=== PATIENT | female | born 2000 | race Caucasian/White ===

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

== ENCOUNTER 2019-05-21 08:00 | Emergency (ER) | payer OTHER ==
--- NOTE | 2019-05-21 08:11 | ED ---
Neurological HPI - HPI Summary HPI Summary: This patient is a 18 y/o female presenting to [facility] c/o seizure today. Patient reports she was sleeping and when she woke up her parents were around her. Patient's parents described patient had a tonic clonic seizure. After the seizure parents state patient was in a postictal state. Patient does not remember the seizure. Currently patient is alert and oriented. Patient's brother has hx of seizure and therefore parents know what a seizure looks like. She currently reports a headache and nausea. She denies any recent traveling. Denies sick contacts. PMHx: GERD. Denies any hx of seizures. Denies PSHx. Patient reports marijuana use however denies alcohol and tobacco use. Home Medications Medication Instructions Recorded Confirmed Type NK [No Home Medications Reported] 05/21/19 05/21/19 History - History of Current Complaint Chief Complaint: EDGeneral Stated Complaint: SEIZURE Hx Obtained From: Patient Onset/Duration: Sudden Onset Timing: Sudden Onset Onset Severity: Moderate Seizure Severity: Moderate Pain Intensity: 4 - headache Pain Scale Used: 0-10 Numeric Character: Other: - seizure Seizure Character: Total-Clonic Aggravating: Nothing Alleviating: Nothing Associated Signs and Symptoms: Positive: Headache, Seizure, Nausea/Vomiting - nausea. Negative: Fever, Chest Pain, Shortness of Breath - Allergy/Home Medications Allergies/Adverse Reactions: Allergies Allergy/AdvReac Type Severity Reaction Status Date / Time No Known Allergies Allergy Verified 05/21/19 08:05 Home Medications: Home Medications NK [No Home Medications Reported] 05/21/19 [History Confirmed 05/21/19] PMH/Surg Hx/FS Hx/Imm Hx Cardiovascular History: Denies: Other Cardiovascular Problems/Disorders Respiratory History: Denies: Other Respiratory Problems/Disorders GI History: Reports: Hx Gastroesophageal Reflux Disease Denies: Other GI Disorders History: Denies: Other Problems/Disorders Musculoskeletal History: Denies: Other Musculoskeletal History Sensory History: Denies: Hx Contacts or Glasses, Hx Hearing Aid Opthamlomology History: Denies: Hx Contacts or Glasses Neurological History: Denies: Hx Seizures, Other Neuro Impairments/Disorders Psychiatric History: Reports: Hx Anxiety - no meds - Surgical History Surgical History: None Hx Anesthesia Reactions: No Infectious Disease History: No Infectious Disease History: Denies: Traveled Outside the [place] in Last 30 Days - Family History Known Family History: Positive: Respiratory Disease - mother with asthma, Seizure Disorder - brother Family History: father with GERD - Social History Alcohol Use: None Substance Use Type: Reports: Marijuana Smoking Status (MU): Never Smoked Tobacco Review of Systems Negative: Fever Positive: Nausea Neurological/Mental Status: Other - POSITIVE: seizure Positive: Headache All Other Systems Reviewed And Are Negative: Yes Physical Exam - Summary Physical Exam Summary: VITAL SIGNS: Reviewed. GENERAL: Patient is a well-developed and nourished female who is lying comfortable in the stretcher. Patient is not in any acute respiratory distress. HEAD AND FACE: No signs of trauma. No ecchymosis, hematomas or skull depressions. No sinus tenderness. EYES: PERRLA, EOMI x 2, No injected conjunctiva, no nystagmus. EARS: Hearing grossly intact. Ear canals and tympanic membranes are within normal limits. MOUTH: Oropharynx within normal limits. NECK: Supple, trachea is midline, no adenopathy, no JVD, no carotid bruit, no c- spine tenderness, neck with full ROM. CHEST: Symmetric, no tenderness at palpation LUNGS: Clear to auscultation bilaterally. No wheezing or crackles. CVS: Regular rate and rhythm, S1 and S2 present, no murmurs or gallops appreciated. ABDOMEN: Soft, non-tender. No signs of distention. No rebound no guarding, and no masses palpated. Bowel sounds are normal. EXTREMITIES: FROM in all major joints, no edema, no cyanosis or clubbing. NEURO: Alert and oriented x 3. No acute neurological deficits. Speech is normal and follows commands. SKIN: Dry and warm GCS: 15 Triage Information Reviewed: Yes Vital Signs On Initial Exam: Initial Vitals Temp Pulse Resp BP Pulse Ox 98.4 F 93 16 129/92 9 05/21/19 08:01 05/21/19 08:01 05/21/19 08:01 05/21/19 08:01 05/21/19 08:01 Vital Signs Reviewed: Yes Procedures - Sedation Patient Received Moderate/Deep Sedation with Procedure: No Diagnostics - Vital Signs Vital Signs Temp Pulse Resp BP Pulse Ox 05/21/19 08:01 98.4 F 93 16 129/92 9 - Laboratory Result Diagrams: 05/21/19 08:25 05/21/19 08:25 Lab Statement: Any lab studies that have been ordered have been reviewed, and results considered in the medical decision making process. - Radiology Chest XR Radiology Interpretation Completed By: Radiologist Summary of Radiographic Findings: IMPRESSION: No acute cardiopulmonary process by radiograph. Dr. Sharp has reviewed this report. - EKG 08:31 Cardiac Rate: NL - at 68 bpm EKG Rhythm: Sinus Rhythm Summary of EKG Findings: E[place] at 0831 shows sinus rhythm at a rate of [address] elevations. This EKG was reviewed and interpreted by ED physician. - Additional Comments Diagnostic Additional Comments: Electroencephalography Clinical Impression: This is an abnormal EEG due to the presence of: 1. Rare spike and slow wave epileptiform discharges seen diffusely, but also over the right frontal region. This indicates an increased epileptogenic potential emanating from these regions. This can also be seen with underlying idiopathic generalized epilepsy. 2. Independent but occasionally bisynchronous slowing over the left frontrotemporal and right frontotemporal regions. This indicates a possible focal neuronal dysfunction in those regions. 3. Diffuse intermittent background slowing which suggests mild diffuse encephalopathy that can be seen in postictal state. Brain MRI, as read by radiologist IMPRESSION: No intracranial mass or hemorrhage is noted. No other abnormality is identified. Dr. Sharp has reviewed these reports. Re-Evaluation - Re-Evaluation First Eval Re-Evaluation Time: 12:20 Comment: Dr. Velarde, neurologist, at bedside. Course/Dx - Course Assessment/Plan: This patient is a 18 y/o female presenting to [facility] c/o seizure today. Patient reports she was sleeping and when she woke up her parents were around her. Patient's parents described patient had a tonic clonic seizure. After the seizure parents state patient was in a postictal state. Currently patient is alert and oriented. Patient's brother has hx of seizure and therefore parents know what a seizure looks like. She currently reports a headache and nausea. She denies any recent traveling. Denies sick contacts. PMHx: GERD. Denies any hx of seizures. Denies PSHx. Patient reports marijuana use however denies alcohol and tobacco use. In the ED course the patient was placed in a sales trainer, IV access was obtained, IV fluids were started. Past medical records reviewed. Blood test w/o a significant abnormality except for hemoglobin 11.4, glucose 114, magnesium 1.8, urinalysis is contaminated. I discussed my physical exam and findings with Dr. eVlarde from neurology who came and examined the patient. He requested an EEG and after the EEG he requested to do an MRI of the brain. Dr. Velarde recommends for the patient to the discharged home after the MRI was done without waiting for the MRI results. Therefore the patient will be discharged home and follow-up with neurology. - Diagnoses Provider Diagnoses: Seizures - Physician Notifications Discussed Care Of Patient With: Minal Velarde Time Discussed With Above Provider: 10:54 Instructed by Provider To: Other - Discussed Dr. Velarde, neurologist, who will come see her in the ED and recommends to order EEG. Discharge ED - Sign-Out/Discharge Documenting (check all that apply): Patient Departure - Discharge home - Discharge Plan Condition: Stable Disposition: HOME Patient Education Materials: New-Onset Seizure in Adults (ED) Referrals: Minal Velarde MD [Medical Doctor] - Vandana Ruby MD [Primary Care Provider] - Additional Instructions: FOLLOW UP WITH DR. VELARDE, NEUROLOGIST. RETURN TO THE EMERGENCY DEPARTMENT FOR ANY WORSENING OR NEW SYMPTOMS. - Billing Disposition and Condition Condition: STABLE Disposition: Home - Attestation Statements Document Initiated by Jacquesibe: Yes Documenting Scribe: Freida Terry Provider For Whom Chantelle is Documenting (Include Credential): Ajit Sharp MD Scribe Attestation: Freida Helms, scribed for Ajit Sharp MD on 05/21/19 at 1739. Scribe Documentation Reviewed: Yes Provider Attestation: The documentation as recorded by the Freida monge accurately reflects the service I personally performed and the decisions made by me, Ajit Sharp MD Status of Scribe Document: Viewed
[2019-05-21 08:45] LABS: INR 1.16 (0.82-1.09)
[2019-05-21 08:47] LABS: ABS Lymphocytes 0.6 10^3/ul (1.0-4.8); ABS Monocytes 0.3 10^3/ul (0-0.8); ABS Neutrophils 5.2 10^3/ul (1.5-7.7); Eosinophil % 0.1 %; Hematocrit 35 % (35-47); Hemoglobin 11.4 g/dL (12.0-16.0); Lymphocyte % 10.1 %; Mean Corpuscular HGB Conc 32 g/dL (31-36); Mean Corpuscular Hemoglobin 23 pg (27-31); Mean Corpuscular Volume 72 fL (80-97); Platelet Count 227 10^3/uL (150-450); Red Blood Count 4.89 10^6 /uL (3.70-4.87); Red Cell Distribution Width 17 % (10-15); White Blood Count 6.2 10^3/uL (3.5-10.8)
[2019-05-21 08:55] LABS: ALT 11 U/L (7-52); AST 14 U/L (13-39); Albumin 4.7 g/dL (3.2-5.2); Albumin/Globulin Ratio 1.6 (1-3); Alkaline Phosphatase 52 U/L (34-104); Anion Gap 7 mmol/L (2-11); BUN/Creatinine Ratio 14.9 (8-20); Blood Urea Nitrogen 11 mg/dL (6-24); CO2 Carbon Dioxide 25 mmol/L (22-32); Calcium 9.6 mg/dL (8.6-10.3); Chloride 105 mmol/L (101-111); Creatine Kinase 107 U/L (10-223); EGFR African American 122.3 (>60); EGFR Non-African American 101.1 (>60); Glucose 114 mg/dL (70-100); Magnesium 1.8 mg/dL (1.9-2.7); Potassium 3.7 mmol/L (3.5-5.0); Sodium 137 mmol/L (135-145); Total Protein 7.7 g/dL (6.4-8.9)
[2019-05-21 09:08] LABS: Urine Appearance Cloudy; Urine Bilirubin Negative (Negative); Urine Blood Negative (Negative); Urine Color Yellow; Urine Glucose Negative (Negative); Urine Ketones Trace (Negative); Urine Nitrite Negative (Negative); Urine Protein 1+(30 mg/dL) (Negative); Urine Urobilinogen Negative (Negative)
[2019-05-21 09:17] LABS: Urine Bacteria Absent (Absent); Urine Red Blood Cell Trace(0-2/hpf) (Absent); Urine Squamous Epithelial Cell Present (Absent); Urine White Blood Cell 1+(6-10/hpf) (Absent)
[2019-05-21 09:26] LABS: Alcohol < 10 mg/dL (<10)
[2019-05-21 09:26] LABS: Urine Benzodiazepine Screen None Detected (None Detect); Urine Opiates Screen None Detected (None Detect)
[2019-05-21 09:31] LABS: Microcytosis 2+
[2019-05-21 12:50] LABS: Phosphorus 2.1 mg/dL (2.5-5.0)
--- NOTE | 2019-05-21 13:43 | EEG ---
ELECTROENCEPHALOGRAPHY: DATE OF STUDY: The study was ordered on 05/21/19, it was read on 05/21/19. ORDERED BY: Ajit Sharp MD. CLINICAL PROBLEM: Ms. Apurva Thapa is a 18-year-old female who had a 2-minute seizure in her sleep. MEDICATION: None. REPORT: The most prominent feature of this recording were rare epileptiform discharges with a morphology of spike and high amplitude broad shaped delta waves seen diffusely but predominantly in the right frontal region lasting for 1 -1.5 seconds. The frequency was approximately 2-1/2 - 3 seconds. Also, there were occasional, high amplitude, polymorphic, diffuse, intermittent, 2-4 Hz delta slowing seen independently in the left frontotemporal and right frontotemporal regions bilaterally. There were occasional diffuse polymorphic high amplitude slowing with a frequency of 2-4 Hz delta and theta range lasting for 1 second seen throughout the recording. Otherwise, the waking background showed appropriate organization with clearly defined anterior-posterior voltage and frequency gradients. There was a discernible posterior dominant rhythm of approximately 10 Hz that was seen symmetrically. Attenuation of the occipital rhythm accompanied drowsiness. Hyperventilation and photic stimulation were not performed. Single electrode EKG showed a normal sinus rhythm with a rate of 90 beats per minute. Throughout the recording there were no electrographic seizures. CLINICAL IMPRESSION: This is an abnormal EEG due to the presence of: 1. Rare spike and slow wave epileptiform discharges seen diffusely, but predominately over the right frontal region. This indicates an increased epileptogenic potential emanating from these regions. This can also be seen with underlying idiopathic generalized epilepsy or frontal lobe seizures. 2. Independent but occasionally bisynchronous slowing over bilateral frontotemporal regions. This indicates a possible focal neuronal dysfunction in those regions. 3. Diffuse intermittent background slowing which suggests mild diffuse encephalopathy that can be seen in postictal state. [id number]/[facility] #: [id number] [facility]
--- NOTE | 2019-05-21 14:59 | CONS ---
NEUROLOGY CONSULTATION NOTE: DATE OF CONSULT: 05/21/19 CONSULTING PROVIDER: Dr. Sharp. REASON FOR CONSULT: Seizure. CHIEF COMPLAINT: I had a seizure. HISTORY OF PRESENT ILLNESS: Ms. Apurva Thapa is a 18-year-old right-handed female, who is a college student, who had an episode of seizure-like activity noted by her parents this morning. The patient had to put down her dog yesterday after having the dog for 8 years. She is extremely stressed out and emotional. She could not sleep well all night. Overnight, she walked into her mother's bedroom and slept on her parents bed. This morning, she woke up and noticed both her parents were at bedside. I personally called and Mrs. Thapa and obtained further history. The patient was apparently sleeping in bed when suddenly she started moaning. Her hands pronated. Her body stiffened. She began shaking with tonic-clonic activity for 2 minutes. Her eyes were open. She did not have any bowel or bladder incontinence. The patient was confused for 19 minutes. EMS was contacted. En route to the hospital by her parents, the patient was able to communicate and recognize the trip to the ED. The patient has never had any seizures before. She has no history of meningitis or encephalitis. She was born a full term with normal vaginal delivery. 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 She denied any head injury. She does have a family history of epilepsy. Her brother suffers from seizures, but these were possibly induced. The patient is back to baseline today. She did not have a CT of the head done. She had her labs that showed no evidence of any infections or electrolyte imbalance. Her magnesium level was slightly low at 1.8. She has no evidence of urinary tract infection. She did have a positive cannabinoids in the urine tox. The patient had an EEG done in the ED that showed diffuse slowing with independent right and left frontotemporal slowing and lastly rare frontal spike and slow wave epileptiform activity at a frequency of 2.5 to 3 Hz lasting 1 to less than 2 seconds. PAST MEDICAL HISTORY: 1. GERD. 2. Depression. PAST SURGICAL HISTORY: Endoscopy. MEDICATIONS: None. ALLERGIES: No known drug allergies. FAMILY HISTORY: Brother with seizures. SOCIAL HISTORY: The patient goes to college in [place]. She is a Senior. 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 She denied any tobacco use. She smokes marijuana occasionally. She denied any alcohol use. REVIEW OF SYSTEMS: A 14-point review of systems was obtained and otherwise negative except for as mentioned in the HPI. PHYSICAL EXAM: Vitals: Temperature of 97.8, pulse of 96, respiratory rate of 22, oxygen saturation 99, blood pressure of 122/70. General: Well-nourished, well- developed young female, in no acute distress. Head: Atraumatic and normocephalic without any obvious abnormality. Neck is supple and symmetrical with no carotid bruit. Eyes: Conjunctivae/corneas are clear. Tongue has mild laceration on the lateral surface of the left tongue. Cardiovascular: Regular rate and rhythm with normal S1, S2. Respiratory: Clear to auscultation bilaterally with no wheezing or rhonchi. Extremities: Normal range of motion with no cyanosis. Skin: No skin lesions, no laceration. Psych: Affect is broad. Normal mood. Neurological Examination: Mental Status: Awake, alert and oriented to person, place, time and general circumstance. Speech and language including repetition, comprehension and fluency were assessed and found to be normal. Cranial Nerves: Pupil equal, round and reactive to light, extraocular muscles are intact. There is normal sensation in the face bilaterally, normal facial symmetry, tongue is symmetric and midline with no atrophy or fasciculation. Motor Examination: 5/5 strength in the upper and lower extremities bilaterally. Sensation is intact to light touch. Reflexes 2 + in the upper and lower extremities with downgoing plantar responses bilaterally. Coordination normal finger to nose and heel to jaime testing. Gait : Normal stance. She was walking around in the ED going to the bathroom independently. ASSESSMENT/RECOMMENDATIONS: Ms. Apurva Thapa is a 18-year-old female who is fairly healthy, who had a seizure-like activity witnessed by her parents today. The patient is back to her normal self. She has no focal neurological deficits on examination. Her EEG was positive for rare epileptiform discharges emanating from the frontal regions bilaterally predominantly in the right frontal region with diffuse polymorphic slowing and focal intermittent right frontotemporal and left frontotemporal slowing. Overall, I do suspect the patient had a first time seizure, most likely a nocturnal seizure or seizures related to idiopathic epilepsy that was provoked by sleep deprivation and stress. She has no risk factors other than having a brother with epilepsy that was thought to be provoked. I had a long discussion multiple times with and Mrs. Thapa as well as Apurva today. I informed them that epileptiform abnormalities can be seen in approximately 25% of the patients following a seizure. This finding substantially increases the likelihood that she will experience a second seizure over the next 2 years. Furthermore, approximately one third of patients will have a recurrent seizure within 5 years if there are abnormalities on EEG or if the first time seizure occurred during sleep, which is the case here. However, she still has a chance that she will never have a second seizure especially since this event took place in the setting of sleep deprivation, which she did have overnight given that she was having grief over her dog that she had to put down yesterday. I am concerned that she is going to have another seizure, therefore, I did inform the family that we have 2 options. First option is to closely monitor her to see if she has another event. If she does have a second seizure, then she will need to be placed on long-term anti- seizure medication. I would recommend levetiracetam with a loading dose of 1000 mg IV x1 and to continue 500 mg twice daily. The second option is to start her on seizure medication today after this first event. The family and the patient had agreed to hold off initiating anti-seizure medication until she has a second seizure. We agreed to obtain an MRI of the brain with and without contrast to evaluate for a structural abnormality such as mesial temporal sclerosis or cortical dysplasia. If abnormal, I would be more inclined to start her on anti-seizure medication today. I educated the patient that she should not be driving, operating any other heavy machinery, climbing ladders, roof tops or swimming independently over the next 6 months. 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 She will need close monitoring with Neurology. I will set her up with an appointment within the next 4 to 6 weeks. If she has a second seizure, I urged the family to bring her in immediately. I counseled the patient regarding sleep deprivation and good sleep hygienes that she needs to follow to prevent any other seizures. I also counseled her on marijuana use. [id number]/[facility] #: [id number] [facility]
[2019-05-21] MEDS ORDERED: Gadoteridol* (CONTRAST) 279.3 MG/ML 10 ML IV ONE (15:14)
[2019-05-21 17:03] VITALS: BP 107/75
== END 2019-05-21 17:03 | disposition home or self-care (01) ==
LOC: ED 08:00
DX: R56.9 Unspecified convulsions (principal); R51 Headache; K21.9 Gastro-esophageal reflux disease without esophagitis; R11.2 Nausea with vomiting, unspecified; F41.9 Anxiety disorder, unspecified
CPT/HCPCS: 36415; 70553; 71045; 80053; 80307; 80320; 81003; 81015; 82550; 83605; 83735; 84100; 85025; 85610; 87086; 93005; 95816; 99283; A9579; G0480